=== PATIENT | male | born 1980 | race Caucasian/White ===

== ENCOUNTER → 2017-05-24 | Outpatient (CLI) | payer BC | END | disposition home or self-care (01) | LOC: CT 10:07 | PROVIDERS: ATTEND Otolaryngology Otolaryngology/Facial Plastic Surgery | DX: H70.13 Chronic mastoiditis, bilateral (principal) | CPT/HCPCS: 70480 ==

== ENCOUNTER → 2017-07-26 | Outpatient (CLI) | payer BC | END | disposition home or self-care (01) | LOC: MRI 14:12 | DX: S83.207A Unspecified tear of unspecified meniscus, current injury, left knee, initial encounter (principal); S43.004A Unspecified dislocation of right shoulder joint, initial encounter; M71.22 Synovial cyst of popliteal space [Baker], left knee; X58.XXXA Exposure to other specified factors, initial encounter; Y93.89 Activity, other specified; Y92.89 Other specified places as the place of occurrence of the external cause; Y99.8 Other external cause status | CPT/HCPCS: 73221; 73721 ==

== ENCOUNTER → 2018-07-18 | Outpatient (CLI) | payer BC ==
[2018-07-18 08:42] LABS: CHLORIDE 102 mEq/L (98-107)
[2018-07-18 08:48] LABS: BASOPHILS % 0.6 % (0.0-2.0); EOSINOPHILS % 1.4 % (0.0-5.0); HEMOGLOBIN. 15.4 g/dL (14.0-18.0); LYMPHOCYTES % 36.6 % (20.0-50.0); MEAN CORPUSCULAR HEMOGLOBIN 30.1 pg (28.0-32.0); MEAN CORPUSCULAR VOLUME 87.6 fL (80.0-94.0); MEAN PLATELET VOLUME 8.9 fl (7.4-10.4); MONOCYTES % 8.8 % (2.0-8.0); NEUTROPHILS % 52.6 % (40.0-76.0); PLATELET 267 x1000/uL (130-400); RED BLOOD CELL COUNT 5.14 mill/uL (4.7-6.1); RED CELL DISTRIBUTION WIDTH 13.4 % (11.6-14.6)
[2018-07-18 08:50] LABS: LDL CHOLESTEROL 207 mg/dL (5-100)
[2018-07-18 08:51] LABS: HDL CHOLESTEROL 50 mg/dL (40-59); T4 FREE 1.14 ng/dL (0.76-1.46)
[2018-07-18 09:13] LABS: CLARITY URINE CLEAR (CLEAR); COLOR URINE YELLOW (YELLOW); KETONES URINE TRACE (NEGATIVE); LEUKOCYTE ESTERASE URINE NEGATIVE (NEGATIVE); NITRITE URINE NEGATIVE (NEGATIVE); OCCULT BLOOD URINE NEGATIVE (NEGATIVE); PH URINE 7.5 (4.5-8.0); PROTEIN URINE 1+ (NEGATIVE)
== END | disposition home or self-care (01) ==
LOC: LAB 08:12
PROVIDERS: ATTEND Internal Medicine
DX: Z83.49 Family history of other endocrine, nutritional and metabolic diseases (principal)
CPT/HCPCS: 36415; 80061; 82248; 82306; 83036; 84153; 84439; 84443; 84481; G0103

== ENCOUNTER 2018-10-05 14:05 | Emergency (ER) | payer BC ==
[~2018-10-05] VITALS: Ht 180.3 cm; Wt 83.0 kg
[2018-10-05] MEDS ORDERED: BACITRACIN ZINC OINT UDPKT TOP ONE (14:30)
[2018-10-05] MEDS ORDERED: LIDOCAINE HCL/PF 1% 10 MG/ML 5ML VIAL IJ ONE (14:30)
[2018-10-05 15:36] VITALS: BP 153/93
== END 2018-10-05 15:36 | disposition home or self-care (01) ==
LOC: ER 14:05
DX: S61.211A Laceration without foreign body of left index finger without damage to nail, initial encounter (principal); F17.210 Nicotine dependence, cigarettes, uncomplicated; W26.0XXA Contact with knife, initial encounter; Y93.89 Activity, other specified; Y92.9 Unspecified place or not applicable
CPT/HCPCS: 12001; 99283; J3490

== ENCOUNTER 2020-11-17 12:29 | Emergency (ER) | payer BC, OTHER ==
[~2020-11-17] VITALS: Ht 180.3 cm; Wt 105.0 kg
[2020-11-17 12:37] VITALS: BP 150/100
[2020-11-17] MEDS ORDERED: PRAV10TA35 PO (12:41)
[2020-11-17] MEDS ORDERED: LIDOCAINE HCL 1% 20ML VIAL (Pyxis) INJ INFIL ONE (13:00)
[2020-11-17] MEDS ORDERED: DOXYCYCLINE HYCLATE 100MG CAPSULE PO ONE (13:00)
[2020-11-17] MEDS ORDERED: DOXY100T2 MT (13:11)
== END 2020-11-17 13:39 | disposition home or self-care (01) ==
LOC: ER 12:29
DX: L02.413 Cutaneous abscess of right upper limb (principal); Z98.890 Other specified postprocedural states
CPT/HCPCS: 10060; 99284; J3490